=== PATIENT | male | born 1965 | race Two or more races ===

== ENCOUNTER 2017-06-06 21:45 | Emergency (ER) | payer MEDICAID, OTHER ==
[~2017-06-06] VITALS: Ht 165.1 cm; Wt 65.8 kg
--- NOTE | 2017-06-06 22:55 | NUR ---
TO BED 7 A 51 YO MALE BIBSELF W C/O "PENIAL SORES AND ITCHING X5 DAYS; USED CONDOMS 2 DAYS AGO AND SX'S GOT WORSE." PATIENT IS AAOX4, AMBULATORY WITH STEADY GAIT, NAD NOTED, VSS, AFEBRILE. COMFORT MEASURES RENDERED. AWAITING FOR ER MD MAZA.
[2017-06-06 23:35] LABS: APPEARANCE,URINE CLEAR (CLEAR); BILIRUBIN,URINE NEGATIVE (NEGATIVE); BLOOD, URINE NEGATIVE Ery/uL (NEGATIVE); COLOR,URINE YELLOW (YELLOW); KETONES,URINE NEGATIVE (NEGATIVE); LEUKOCYTE ESTERASE ,URINE NEGATIVE (NEGATIVE); NITRITE, URINE NEGATIVE (NEGATIVE); PROTEIN,URINE NEGATIVE (NEGATIVE); UGLUCOSE NEGATIVE (NEGATIVE); UROBILINOGEN,URINE 0.2 EU/dL (0.2)
--- NOTE | 2017-06-07 01:02 | NUR ---
Patient discharged to home in stable condition. Written and verbal after care instructions given. Patient verbalizes understanding of instruction. Patient is ambulatory with steady gait, no further complaints.
[2017-06-07 01:03] VITALS: BP 118/74
[2017-06-09 13:14] LABS: *NEISSERIA GONORRHOEAE NAA Negative (Negative); CHLAMYDIA TRACHOMATIS NAA Negative (Negative)
== END 2017-06-07 01:04 | disposition home or self-care (01) ==
LOC: ER 21:47
DX: N48.9 Disorder of penis, unspecified (principal)
CPT/HCPCS: 36415; 81000-TC; 86695; 86696; 87491; 87591; A4606; Z7610

== ENCOUNTER 2017-07-04 21:08 | Emergency (ER) | payer MEDICAID ==
[~2017-07-04] VITALS: Ht 165.1 cm; Wt 65.8 kg
[2017-07-04 21:38] VITALS: BP 120/72
--- NOTE | 2017-07-04 22:00 | NUR ---
RADIOLOGY AT BEDSIDE FOR CHEST XRAY.
== END 2017-07-04 23:23 | disposition home or self-care (01) ==
LOC: ER 21:20
DX: J40 Bronchitis, not specified as acute or chronic (principal)
CPT/HCPCS: 71010; 99283; A4606; Z7610

== ENCOUNTER 2017-08-28 19:36 | Emergency (ER) | payer MEDICAID ==
[~2017-08-28] VITALS: Ht 172.7 cm; Wt 73.9 kg
[2017-08-28 19:36] VITALS: BP 136/82
== END 2017-08-28 20:01 | disposition home or self-care (01) ==
LOC: ER 19:39
DX: L03.313 Cellulitis of chest wall (principal); K14.0 Glossitis; F10.10 Alcohol abuse, uncomplicated
CPT/HCPCS: 99283; A4606; Z7610

== ENCOUNTER 2018-03-12 16:46 | Emergency (ER) | payer MEDICAID, OTHER ==
[~2018-03-12] VITALS: Ht 162.6 cm; Wt 63.5 kg
[2018-03-12 16:58] VITALS: BP 147/96
[2018-03-12] MEDS ORDERED: ACETAMINOPHEN W/ CODEINE#3 1 EA TABLET ONE (17:21)
[2018-03-12] MEDS ORDERED: IBUPROFEN 600 MG TABLET PO ONE ×2 (17:22→17:30)
[2018-03-12] MEDS ORDERED: ACETAMINOPHEN W/ CODEINE#3 1 EA TABLET PO ONE (17:30)
== END 2018-03-12 17:35 | disposition home or self-care (01) ==
LOC: ER 16:48
DX: K08.89 Other specified disorders of teeth and supporting structures (principal); K02.9 Dental caries, unspecified
CPT/HCPCS: A4606; Z7610

== ENCOUNTER 2018-09-18 20:18 | Emergency (ER) | payer MEDICAID ==
[~2018-09-18] VITALS: Ht 172.7 cm; Wt 75.7 kg
--- NOTE | 2018-09-18 21:14 | NUR ---
53 Y/O MALE PLACED IN BED 13 C/O LOWER ABDOMINAL PAIN RADIATING TO HIS FLANKS. PT ALSO CLAIMS TO HAVE DIFICULTY URINATING.
[2018-09-18] MEDS ORDERED: MORPHINE SULFATE INJ 2 MG/ML DISP.SYRIN IV ONE (21:30)
[2018-09-18] MEDS ORDERED: ONDANSETRON HCL/PF 4 MG/2 ML VIAL IVP ONE (21:30)
[2018-09-18] MEDS ORDERED: IV NS 0.9% 1,000 ML BAG IV ONE (21:30)
[2018-09-18 21:39] LABS: APPEARANCE,URINE Clear (CLEAR); BILIRUBIN,URINE Negative (NEGATIVE); BLOOD, URINE Negative Ery/uL (NEGATIVE); COLOR,URINE Yellow (YELLOW); KETONES,URINE Negative (NEGATIVE); LEUKOCYTE ESTERASE ,URINE Negative (NEGATIVE); NITRITE, URINE Negative (NEGATIVE); PROTEIN,URINE Negative (NEGATIVE); UGLUCOSE Negative (NEGATIVE)
[2018-09-18] MEDS ORDERED: ONDANSETRON HCL/PF 4 MG/2 ML VIAL ONE (21:52)
[2018-09-18] MEDS ORDERED: MORPHINE SULFATE INJ 4 MG/ML DISP.SYRIN ONE (21:53)
--- NOTE | 2018-09-18 21:57 | NUR ---
H/L 20G PLACED RIGHTA/C. BLOOD OBTAINED AND SENT. URINE SENT. IVF RUNNING. MEDICATION GIVEN.
--- NOTE | 2018-09-18 22:12 | NUR ---
Note emerald in ED - 09/18/18 at 2228 by SOBIA DX - GASTRITIS. ACI WITH RX GIVEN. PT DISCHARGED HOME TO FOLLOW UP WITH PMD.
--- NOTE | 2018-09-18 22:28 | NUR ---
WAITING FOR LAB RESULTS.
[2018-09-18 22:31] LABS: BASOPHILS # (AUTO) 0.1 /CMM (0.0-0.2); EOSINOPHILS % (AUTO) 2.6 % (0.0-6.0); HEMATOCRIT 43 % (39-51); HEMOGLOBIN 14.6 g/dL (13.5-17.5); LYMPHOCYTES # (AUTO) 1.6 /CMM (0.8-4.8); LYMPHOCYTES % (AUTO) 16.5 % (20.0-44.0); MEAN CORPUSCULAR HGB CONC 34 g/dl (31.0-36.0); MEAN CORPUSCULAR VOLUME 91 fL (80-96); MONOCYTES # (AUTO) 0.9 /CMM (0.1-1.30); MONOCYTES % (AUTO) 9.6 % (2.0-12.0); NEUTROPHILS # (AUTO) 6.8 /CMM (1.8-8.9); NEUTROPHILS % (AUTO) 70.3 % (43.0-81.0); PLATELET COUNT (AUTO) 410 /CMM (150-450); RED BLOOD CELL COUNT(AUTO) 4.66 MIL/uL (4.5-6.0); WHITE BLOOD COUNT (AUTO) 9.7 K/uL (4.3-11.0)
[2018-09-18 22:42] LABS: CALCIUM, SERUM 8.4 mg/dL (8.5-10.1); CARBON DIOXIDE 30 mmol/L (21-32); CHLORIDE 108 mmol/L (98-107); CREATININE 0.8 mg/dL (0.6-1.3); GLUCOSE 85 mg/dL (74-106); POTASSIUM 3.4 mmol/L (3.5-5.1); SODIUM SERUM 146 mmol/L (136-145); UREA NITROGEN, BLOOD 12 mg/dL (7-18)
[2018-09-18 22:47] LABS: ALANINE AMINOTRANSFERASE 56 U/L (12-78); ALBUMIN 3.8 g/dL (3.4-5.0); ALKALINE PHOSPHATASE 89 U/L (46-116); ASPARTATE AMINOTRANSFERASE 40 U/L (15-37); BILIRUBIN,DIRECT 0.1 mg/dL (0.0-0.2); BILIRUBIN,TOTAL 0.7 mg/dL (0.2-1.0); LIPASE 168 U/L (73-393); TOTAL PROTEIN, SERUM 7.3 g/dL (6.4-8.2)
[2018-09-18 23:13] VITALS: BP 114/69
--- NOTE | 2018-09-18 23:25 | NUR ---
RESULTS LOOK GOOD. PT TO FOLLOW UP WITH PMD. ACI WITH RX GIVEN.
== END 2018-09-18 22:17 | disposition home or self-care (01) ==
LOC: ER 20:18
DX: R10.84 Generalized abdominal pain (principal); E78.00 Pure hypercholesterolemia, unspecified; Z88.8 Allergy status to other drugs, medicaments and biological substances
CPT/HCPCS: 36415; 80048; 80076; 81001; 83690; 84484; 85025; 85730; 93005; 96374; 96375; 99284; A4606; J2270; J2405; J7030; Z7610; 81000-TC

== ENCOUNTER 2019-07-11 17:36 | Emergency (ER) | payer MEDICAID ==
[~2019-07-11] VITALS: Ht 162.6 cm; Wt 72.6 kg
[2019-07-11] MEDS ORDERED: diphenhydrAMINE HCL 25 MG CAPSULE ONE (18:22)
[2019-07-11] MEDS ORDERED: IBUPROFEN 600 MG TABLET PO ONE ×2 (18:30)
[2019-07-11] MEDS ORDERED: CEPHALEXIN MONOHYDRATE 500 MG CAPSULE PO ONE ×2 (18:30)
[2019-07-11] MEDS ORDERED: diphenhydrAMINE HCL 25 MG CAPSULE PO ONE (18:30)
--- NOTE | 2019-07-11 18:40 | NUR ---
Patient discharged to home in stable condition. Written and verbal after care instructions given. Patient verbalizes understanding of instruction.
[2019-07-11 19:23] VITALS: BP 119/75
== END 2019-07-11 19:24 | disposition home or self-care (01) ==
LOC: ER 17:37
DX: T63.311A Toxic effect of venom of black widow spider, accidental (unintentional), initial encounter (principal); E78.00 Pure hypercholesterolemia, unspecified; F10.10 Alcohol abuse, uncomplicated; Y90.9 Presence of alcohol in blood, level not specified; Z88.8 Allergy status to other drugs, medicaments and biological substances; Y92.89 Other specified places as the place of occurrence of the external cause
CPT/HCPCS: 99284; Q0163